=== PATIENT | female | born 1980 | race Native Hawaiian/Other Pacific Islander ===

== ENCOUNTER 2017-07-19 20:59 | Emergency (ER) | payer SELFPAY ==
[2017-07-19 21:12] VITALS: RESP 14; O2SAT 99
--- NOTE | 2017-07-19 21:49 | C.PDOC ---
History Of Present Illness 36 year old female presents to the ED for evaluation after she woke up with a left-sided facial droop around 4 days ago. Patient note she has been experiencing difficulty eating without dribbling. Otherwise, patient denies headache. Time Seen by Provider: 07/19/17 21:18 Chief Complaint (Nursing): Weakness/Neurological Deficit History Per: Patient History/Exam Limitations: no limitations Onset/Duration Of Symptoms: Days (4) Current Symptoms Are (Timing): Still Present Activity At Onset Of Symptoms: Standing Associated Symptoms Preceding Syncopal Episode: No Predromal Symptoms (Sudden Onset) Seizure Or Post-ictal Symptoms: None Fall Associated With With Symptoms: No Additional History Per: Patient Past Medical History Reviewed: Historical Data, Nursing Documentation, Vital Signs Vital Signs: Last Vital Signs Temp 98.7 F 07/19/17 21:09 Pulse 75 07/19/17 21:09 Resp 14 07/19/17 21:09 BP 134/90 07/19/17 21:09 Pulse Ox 99 07/19/17 22:04 - Medical History PMH: No Chronic Diseases Surgical History: No Surg Hx Family History: States: Unknown Family Hx - Social History Hx Alcohol Use: No Hx Substance Use: No - Immunization History Hx Tetanus Toxoid Vaccination: No Hx Influenza Vaccination: No Hx Pneumococcal Vaccination: No Review Of Systems Neurological: Positive for: Other (left-sided facial droop ). Negative for: Headache Physical Exam - Physical Exam Appears: Non-toxic, No Acute Distress Skin: Normal Color, Warm, Dry Head: Atraumatic, Normacephalic Eye(s): bilateral: Normal Inspection Ear(s): Bilateral: Normal, Other (no vesicles) Oral Mucosa: Moist Neck: Supple Chest: Symmetrical, No Deformity, No Tenderness Cardiovascular: Rhythm Regular, No Murmur Respiratory: Normal Breath Sounds, No Rales, No Rhonchi Extremity: Normal ROM, Capillary Refill (less than 2 seconds ) Neurological/Psych: Oriented x3, Normal Speech, Normal Cognition Gait: Steady Other Neurological Findings: Facial Palsy (mild, left-sided facial droop, including forehead) ED Course And Treatment O2 Sat by Pulse Oximetry: 99 (on RA) Pulse Ox Interpretation: Normal Progress Note: Pepcid PO and Prednisone PO administered. Medical Decision Making Medical Decision Making: classic Wahl's Palsy started acutely 4 days ago no WRAY no other neuro deficits aside from typical facial no w/u indicated. Disposition Doctor Will See Patient In The: Office Counseled Patient/Family Regarding: Studies Performed, Diagnosis - Disposition Referrals: [facility] [Outside] [facility] [Outside] Froylan Boggs MD [Staff Provider] - Disposition: HOME/ ROUTINE Disposition Time: 21:50 Condition: GOOD Additional Instructions: eye lubricant drops @ night to prevent eye dryness Tape the eye closed @ sleep time (as demonstrated in ER) Prednisone Taper over the next 11 days as prescribed Pepcid 20 mg @ night to help prevent stomach irritation from the Motrin Follow-up in our outpatient Clinic (free) or w our Neurologist [facility]- Dr. Boggs. Prescriptions: Prednisone [Deltasone] 20 mg PO DAILY 11 Days #16 tablet Instructions: Wahl Palsy (ED) Forms: [facility] (Kyrgyz) - Clinical Impression Clinical Impression: Facial droop - Scribe Statement The provider has reviewed the documentation as recorded by the Scribe (Myrna Tyson) Provider Attestation: All medical record entries made by the Scribe were at my direction and personally dictated by me. I have reviewed the chart and agree that the record accurately reflects my personal performance of the history, physical exam, medical decision making, and the department course for this patient. I have also personally directed, reviewed, and agree with the discharge instructions and disposition.
[2017-07-19 22:06] VITALS: BP 130/85; PULSE 70; TEMP 98
== END 2017-07-19 22:07 | disposition home or self-care (01) ==
LOC: C.ER 20:59
DX: R29.810 Facial weakness (principal)